=== PATIENT | male | born 1985 | race Caucasian/White ===

== ENCOUNTER 2023-10-02 13:37 | Emergency (ER) | payer MEDICAID ==
[~2023-10-02] VITALS: Ht 177.8 cm; Wt 77.1 kg
[2023-10-02] MEDS ORDERED: ACET1TAB23 PO (14:56)
[2023-10-02] MEDS ORDERED: METH-807 PO (14:56)
[2023-10-02 15:38] VITALS: BP 142/78; TEMP 98.1; O2SAT 98
== END 2023-10-02 15:45 | disposition home or self-care (01) ==
LOC: ER 13:37
DX: M25.512 Pain in left shoulder (principal); Z79.1 Long term (current) use of non-steroidal anti-inflammatories (NSAID); Z79.899 Other long term (current) drug therapy
CPT/HCPCS: A4606; A4663